=== PATIENT | male | born 1970 | race Caucasian/White ===

== ENCOUNTER 2017-03-05 16:28 | Inpatient (IN) | payer OTHER ==
[~2017-03-05] VITALS: Ht 180.3 cm; Wt 102.6 kg
[2017-03-05] VITALS (10 sets, daily range): BP systolic 94–149; BP diastolic 53–88; PULSE 81–111; RESP 20–27; TEMP 97.2–98.4; O2SAT 95–100
[2017-03-05] MEDS ORDERED: PROPOFOL 1000 MG/100 ML INJ 100 ML ONE (16:33)
[2017-03-05] MEDS ORDERED: DIPHTH/TETANUS/ACEL PERTUSSIS (BOOSTER) 0.5 ML VIAL/PFS IM ONE (16:47)
[2017-03-05] MEDS ORDERED: ceFAZolin 2 GM PREMIX 50 ML ONE (16:47)
[2017-03-05 16:59] LABS: AUTOMATED NEUTROPHIL # 16.6 TH/MM3 (1.8-7.7); BASOPHIL # 0.1 TH/MM3 (0-0.2); BASOPHIL % 0.5 % (0.0-2.0); EOSINOPHIL # 0.2 TH/MM3 (0-0.4); EOSINOPHIL % 0.8 % (0.0-4.0); HEMATOCRIT 39.5 % (39.0-51.0); HEMO FLAGS DIFF FINAL; LYMPH % 20.5 % (9.0-44.0); LYMPHOCYTE # 4.6 TH/MM3 (1.0-4.8); MEAN CELL VOLUME 91.1 FL (80.0-100.0); MEAN CORPUSCULAR HEMOGLOBIN 30.2 PG (27.0-34.0); MEAN CORPUSCULAR HGB CONC 33.2 % (32.0-36.0); MONO % 4.3 % (0.0-8.0); NEUT % 73.9 % (16.0-70.0); PLATELET COUNT 242 TH/MM3 (150-450); RED BLOOD COUNT 4.34 MIL/MM3 (4.50-5.90); RED CELL DISTRIBUTION WIDTH 13.2 % (11.6-17.2); WHITE BLOOD COUNT 22.4 TH/MM3 (4.0-11.0)
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
[2017-03-05] MEDS ORDERED: ONDANSETRON HCL 4 MG/2 ML VIAL IV PUSH PRN (17:00)
[2017-03-05] MEDS ORDERED: Post-op Orders (for Pharmacy) MISC XX ONE (17:00)
[2017-03-05] MEDS ORDERED: fentaNYL DRIP 250 ML IV PRN ×2 (17:00→19:30)
[2017-03-05] MEDS ORDERED: PROPOFOL 1000 MG/100 ML INJ 100 ML IV PRN ×2 (17:00→19:30)
[2017-03-05] MEDS ORDERED: NALOXONE HCL 0.4 MG/ML AMP IV PUSH PRN (17:00)
[2017-03-05] MEDS ORDERED: SODIUM CHLORIDE 0.9% FLUSH 10 ML FLUSH IV FLUSH PRN (17:00)
[2017-03-05 17:06] LABS: APTT (PATIENT) 22.9 SEC (24.3-30.1); PROTHROMBIN TIME - PATIENT 11.6 SEC (9.8-11.6)
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
[2017-03-05] MEDS ORDERED: IOHEXOL 350 MG/ML 10 ML VIAL (for RAD DIAG) IVCONTRAST ONE (17:33)
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
[2017-03-05] MEDS ORDERED: LIDOCAINE 1%/EPINEPHrine 1:100,000 SOLN 20 ML VIAL ONE (17:40)
[2017-03-05] MEDS ORDERED: GELFOAM SIZE 100 ONE (17:40)
[2017-03-05] MEDS ORDERED: THROMBIN (TOPICAL) 5,000 UNIT VIAL ONE (17:40)
[2017-03-05] MEDS ORDERED: GENTAMICIN SULFATE 80 MG/2 ML VIAL ONE (17:40)
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
[2017-03-05] MEDS ORDERED: 3% SALINE INJ 500 ML IV SCH (18:00)
[2017-03-05] MEDS ORDERED: MANNITOL INJ 200 ML ONE (18:06)
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
[2017-03-05 18:37] LABS: BLOOD GAS BASE EXCESS -13.7 mmol/L (-2-2); BLOOD GAS CARBOXYHEMOGLOBIN 0.6 % (0-4); BLOOD GAS HCO3 14 mmol/L (22-26); BLOOD GAS METHEMOGLOBIN 1.4 % (0-2); BLOOD GAS O2 HGB SATURATION 96 % (90-100); BLOOD GAS PCO2 42 mmHg (38-42); BLOOD GAS PO2 154 mmHg (61-120); BLOOD GAS TOTAL HGB 9.4 G/DL (12.0-16.0); TEMP CORR TO 98.6
[2017-03-05 18:38] LABS: CRITICAL VALUE YES; OXYGEN DEVICE OR
[2017-03-05] MEDS ORDERED: SODIUM BICARBONATE 8.4% INJ 50 MEQ/50 ML SYR ONE ×3 (18:40→18:52)
[2017-03-05] MEDS ORDERED: CALCIUM CHLORIDE 10% SOLN 1 GRAM/10 ML SYR ONE (18:51)
[2017-03-05] MEDS ORDERED: NOREPINEPHRINE 4 MG/4 ML AMP ONE ×3 (19:00→19:30)
[2017-03-05] MEDS ORDERED: PHENYLEPHRINE HCL 10 MG/ML VIAL ONE ×2 (19:09→19:15)
[2017-03-05] MEDS ORDERED: POTASSIUM PHOSPHATE MONOBASIC 500 MG TAB PO/TUBE PRN (19:30)
[2017-03-05] MEDS ORDERED: MIDAZOLAM HCL 2 MG/2 ML VIAL IV PUSH PRN (19:30)
[2017-03-05] MEDS ORDERED: POTASSIUM PHOSPHATE INJ 30 MMOL in SODIUM CHLOR 0.9% 250 ML INJ 250 ML IV PRN (19:30)
[2017-03-05] MEDS ORDERED: MAGNESIUM OXIDE 400 MG TAB PO PRN (19:30)
[2017-03-05] MEDS ORDERED: POTASSIUM CHLORIDE 25 MEQ EFFERVESCENT TAB PO PRN (19:30)
[2017-03-05] MEDS ORDERED: POTASSIUM PHOSPHATE MONOBASIC 500 MG TAB PO PRN (19:30)
[2017-03-05] MEDS ORDERED: SODIUM PHOSPHATE INJ 30 MMOL in SODIUM CHLOR 0.9% 250 ML INJ 240 ML IV PRN (19:30)
[2017-03-05] MEDS ORDERED: POTASSIUM CHLOR 40 MEQ PREMIX 100 ML IV PRN ×2 (19:30)
[2017-03-05] MEDS ORDERED: SODIUM CHLOR 0.9% 1000 ML INJ 1,000 ML IV ONE (19:30)
[2017-03-05] MEDS ORDERED: NOREPINEPHRINE INJ 4 MG in SODIUM CHLOR 0.9% 250 ML INJ 246 ML IV PRN (19:30)
[2017-03-05] MEDS ORDERED: TERBUTALINE INJ 1 MG/ML AMP SQ PRN ×2 (19:30→20:45)
[2017-03-05] MEDS ORDERED: MAGNESIUM SULFATE INJ 2 GM in SODIUM CHLORIDE 0.9% INJ 96 ML IV PRN (19:30)
[2017-03-05] MEDS ORDERED: POTASSIUM CHLOR 20 MEQ PREMIX 100 ML IV PRN ×2 (19:30)
[2017-03-05] MEDS ORDERED: MIDAZOLAM HCL 5 MG/5 ML VIAL IV PUSH ONE (19:30)
[2017-03-05] MEDS ORDERED: MAGNESIUM SULFATE INJ 4 GM in SODIUM CHLORIDE 0.9% INJ 92 ML IV PRN (19:30)
[2017-03-05] MEDS ORDERED: ACETAMINOPHEN 650 MG/20.3 ML UDC PO PRN (19:45)
[2017-03-05] MEDS ORDERED: DEXTROSE 50% IN WATER 50 ML VIAL(D50) IV PUSH PRN (19:45)
[2017-03-05] MEDS: NOREPINEPHRINE 4 MG/NS 250 ML IV PRN ×2 (19:45)
[2017-03-05] MEDS ORDERED: GLUCAGON 1 MG/ML VIAL OTHER PRN (19:45)
[2017-03-05] MEDS ORDERED: MIDAZOLAM HCL 5 MG/ML VIAL (1 ML) ONE ×2 (19:52→22:47)
--- NOTE | 2017-03-05 19:56 | PD.OP ---
Operative Report Date of Surgery: Mar 05, 2017 Preoperative Diagnosis: (1) Traumatic brain injury Severe traumatic brain injury. Acute left hemisphere subdural hematoma Postoperative Diagnosis: (1) Traumatic brain injury Severe traumatic brain injury. Acute left hemisphere subdural hematoma Procedure: 1. Left frontotemporoparietal decompressive craniotomy. 2. Evacuation acute left hemisphere subdural hematoma 3. Placement left frontal ICP monitor. Anesthesia: Gen. Surgeon: Aayush Hickey Doctor Of Radiology(s): [place]agher Operation and Findings: Findings: Moderate left hemispheric acute subdural hematoma. Moderately severe left hemisphere edema. Significant contusion left temporal cortex Procedure in detail: The patient was brought into the operating room and general endotracheal anesthesia induced without difficulty. The Huffman catheter, and sequential compression devices were in place. The lines were established per anesthesia. The patient was placed in semilateral position on the 3080 table with the head on the horseshoe headrest. All extremities were appropriately padded Appropriate timeout procedure was performed with all personnel present and in agreement The left side of the head was shaved with the clippers and sterilely prepped and draped 1% Xylocaine was used for local infiltration over the incision site which was made over the left frontotemporal parietal area in a curvilinear fashion and carried sharply down to the cranium through the temporalis muscle and fascia. The scalp and temporalis muscle flap were elevated in a single layer with the periosteal elevator and retracted r over a laparotomy sponge with the large scalp hooks. The civil rights representative was used to place a single bur hole in the posterior left frontoparietal region and the craniotome was used since to incise the bone flap. The dura was moderately tense upon removal of the bone flap. The dura was opened in a cruciate fashion and the edges retracted with 4-0 Nurolon suture. The large underlying subdural hematoma was evacuated with gentle suction and irrigation until clear The bipolar forceps were used to control any bleeding at the operative site. There was moderate bleeding from the left temporal cortex secondary to contusion. There was still evidence of surrounding edema and the brain was bulging slightly beyond the edge dura at the the craniotomy site. It was elected to leave the bone flap out and the dura opened to allow for cerebral edema. The ICP monitor lead was zeroed and brought to a subgaleal tract from the frontal region and placed directly into the frontal brain parenchyma. The ICP lead was secured to the scalp with 2-0 nylon suture. A 7 mm flat fluted drain was left in place in the subdural space A 7 mm flat fluted drain was left in place in the subgaleal space The drains were brought out through incisions in the posterior parietal region and secured to the skin with nylon suture The closure was performed with 2-0 Vicryl for the temporalis muscle fascia and galeal closure and tatum for the skin closure. A dressing of sterile Telfa, 4 x 4's, and a loose head stockinette was applied. The patient was taken to recovery room in stable condition All counts were correct at the end of the case. Estimated blood loss was 200 cc No specimen was sent to pathology Aayush Hickey MD Mar 05, 2017 19:56
[2017-03-05] MEDS ORDERED: SODIUM CHLORIDE 23.4% INJ 240 MEQ in SYRINGE/BAG 1 EA IV ONE (20:00)
[2017-03-05] MEDS: SODIUM CHLOR 0.9% 1000 ML INJ 1,000 ML IV SCH (20:14)
--- NOTE | 2017-03-05 20:15 | PD.PROCEDR ---
Procedure Note Procedure DATE: 03/05/17 CENTRAL LINE PLACEMENT: Right subclavian vein. INDICATION: Central venous access CONSENT Procedure was performed emergently as patient is hypotensive and with intercerebral hypertension requiring pressors to maintain MAP and CPP DESCRIPTION OF THE PROCEDURE The patient was placed in supine position. The skin was cleansed with Chloraprep. Additional barrier precautions included large sterile drape, sterile gloves, sterile gown, face mask, and hat. 1 % lidocaine was used for local anesthesia. The patient was placed in mild Trendelenburg. On a single attempt, the vein was accessed with an introducer needle. The guide wire was advanced and the tract was dilated. Using Seldinger technique a 7 Azeri 20 cm antimicrobial coated triple-lumen catheter was advanced to a depth of 16 centimeters. The guide wire was removed. All ports had good return of dark venous blood and flushed easily with saline. The central line was secured with Stat-lock. A sterile dressing with antibiotic disc was applied. ESTIMATED BLOOD LOSS: Minimal COMPLICATIONS: No apparent complications. STAT chest x-ray is pending Teresita Arce MD Mar 05, 2017 20:15
[2017-03-05] MEDS ORDERED: PHENYLEPHRINE INJ 160 MG in SODIUM CHLORID 0.9% 500 ML INJ 500 ML IV PRN (20:45)
[2017-03-05] MEDS: fentaNYL 2,500 MCG/NS 250 ML IV PRN (20:46)
[2017-03-05] MEDS: levETIRAcetam INJ 500 MG in SODIUM CHLORIDE 0.9% INJ 100 ML IV SCH (20:46)
[2017-03-05] MEDS: PROPOFOL 1000 MG/100 ML IV PRN (20:46)
[2017-03-05] MEDS: SODIUM CHLORIDE 0.9% FLUSH 10 ML FLUSH IV FLUSH SCH (20:46)
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
[2017-03-05] MEDS ORDERED: NS IV SCH (21:08)
[2017-03-05] MEDS ORDERED: VASOPRESSIN IV SCH (21:08)
[2017-03-05 21:10] LABS: BLOOD GAS BASE EXCESS -15.2 mmol/L (-2-2); BLOOD GAS CARBOXYHEMOGLOBIN 0.7 % (0-4); BLOOD GAS HCO3 12 mmol/L (22-26); BLOOD GAS O2 HGB SATURATION 98 % (90-100); BLOOD GAS OXYGEN CONTENT 10.2 Vol % (12.0-20.0); BLOOD GAS PCO2 37 mmHg (38-42); BLOOD GAS PO2 244 mmHg (61-120); TEMP CORR TO 98.6
[2017-03-05 21:11] LABS: CRITICAL VALUE YES; OXYGEN DEVICE VENTILATOR
[2017-03-05 21:12] LABS: DRAW SITE ART LINE; FIO2 100 %; STAT NO
[2017-03-05] MEDS ORDERED: SODIUM CHLOR 0.9% 250 ML INJ 250 ML IV ONE ×3 (21:30→23:00)
[2017-03-05] MEDS: VASOPRESSIN INJ 40 UNITS in SODIUM CHLORIDE 0.9% INJ 98 ML IV SCH (21:38)
[2017-03-05 21:45] LABS: AUTOMATED NEUTROPHIL # 10.3 TH/MM3 (1.8-7.7); BASOPHIL % 0.3 % (0.0-2.0); EOSINOPHIL % 0.2 % (0.0-4.0); HEMATOCRIT 21.3 % (39.0-51.0); LYMPH % 8.1 % (9.0-44.0); MEAN CELL VOLUME 92.4 FL (80.0-100.0); MEAN CORPUSCULAR HEMOGLOBIN 30.1 PG (27.0-34.0); MEAN CORPUSCULAR HGB CONC 32.6 % (32.0-36.0); MONO % 6.6 % (0.0-8.0); NEUT % 84.8 % (16.0-70.0); PLATELET COUNT 151 TH/MM3 (150-450); RED BLOOD COUNT 2.31 MIL/MM3 (4.50-5.90); RED CELL DISTRIBUTION WIDTH 13.2 % (11.6-17.2); WHITE BLOOD COUNT 12.1 TH/MM3 (4.0-11.0)
[2017-03-05 21:51] LABS: HEMO FLAGS AUTO DIFF
[2017-03-05 21:54] LABS: APTT (PATIENT) 23.3 SEC (24.3-30.1); INTERNATIONAL NORMALIZED RATIO 1.3 RATIO; PROTHROMBIN TIME - PATIENT 14.1 SEC (9.8-11.6)
[2017-03-05 21:58] LABS: BICARBONATE 14.3 MEQ/L (21.0-32.0); POTASSIUM 3.5 MEQ/L (3.5-5.1)
[2017-03-05 22:21] LABS: CALCIUM-PROTEIN CORRECTED 7.6 MG/DL (8.5-10.1); TOTAL BILIRUBIN ADULT 0.2 MG/DL (0.2-1.0)
[2017-03-05 22:23] LABS: BANDS 28 % (0-6); METAMYELOCYTES 9 % (0-1); NEUTROPHIL # MANUAL DIFF 10.8 TH/MM3 (1.8-7.7); PLATELET ESTIMATE SMEAR LOW (NORMAL); PLATELET MORPHOLOGY NORMAL (NORMAL); POLYS (SEG NEUTROPHILS) 52 % (16-70); SCAN/DIFF FINAL DIFF MANUAL; WBC DIFF SAMPLE 100
[2017-03-05] MEDS ORDERED: CALCIUM CHLORIDE INJ 2 GM in SODIUM CHLORIDE 0.9% INJ 100 ML IV ONE (22:45)
[2017-03-05] MEDS ORDERED: MIDAZOLAM 100 MG/100 ML INJ 100 ML IV PRN (22:45)
[2017-03-05] MEDS ORDERED: MIDAZOLAM HCL 5 MG/ML VIAL (1 ML) IV PUSH ONE ×2 (22:45→23:45)
[2017-03-05] MEDS ORDERED: PHYTONADIONE INJ 10 MG in SODIUM CHLORIDE 0.9% INJ 50 ML IV ONE (22:45)
[2017-03-05] MEDS ORDERED: TRANEXAMIC ACID INJ 1,000 MG in SODIUM CHLORIDE 0.9% INJ 100 ML IV ONE (23:00)
[2017-03-05 23:07] LABS: CKMB 27.5 NG/ML (0.5-3.6)
[2017-03-05] MEDS: PANTOPRAZOLE SODIUM 40 MG VIAL IV PUSH SCH (23:29)
[2017-03-05 23:32] LABS: BLOOD, URINE MOD (NEG); GLUCOSE,URINE NEG (NEG); KETONE, URINE NEG (NEG); NITRITE,URINE NEG (NEG); URINE COLOR LIGHT-YELLOW (YELLW/STRAW)
[2017-03-05 23:41] LABS: RBC, URINE 0-3 /hpf (0-3); SQUAMOUS EPITHELIAL CELL URINE 0-5 /hpf (0-5)
[2017-03-05 23:42] LABS: BACTERIA, URINE OCC /hpf; COMMENT (UR) CATH-CULTURE IND; CULTURE IF INDICATED CATH CULTURE IND
[2017-03-06] VITALS (23 sets, daily range): BP systolic 100–201; BP diastolic 74–115; PULSE 72–133; RESP 20–24; TEMP 93.9–98.6; O2SAT 97–100
[2017-03-06] MEDS: SODIUM CHLORIDE 23.4% INJ 240 MEQ in SYRINGE/BAG 1 EA IV PRN ×2 (00:42→04:53)
[2017-03-06] MEDS: SODIUM CHLOR 0.9% 1000 ML INJ 1,000 ML IV SCH ×2 (00:56→10:47)
[2017-03-06 02:22] LABS: APTT (PATIENT) 20.7 SEC (24.3-30.1); PROTHROMBIN TIME - PATIENT 10.9 SEC (9.8-11.6)
[2017-03-06] MEDS: PROPOFOL 1000 MG/100 ML IV PRN ×2 (02:51→05:57)
[2017-03-06 04:36] LABS: BASOPHIL % 0.1 % (0.0-2.0); HEMATOCRIT 27.9 % (39.0-51.0); LYMPH % 3.5 % (9.0-44.0); LYMPHOCYTE # 0.5 TH/MM3 (1.0-4.8); MEAN CELL VOLUME 88.5 FL (80.0-100.0); MEAN CORPUSCULAR HEMOGLOBIN 30.4 PG (27.0-34.0); MEAN CORPUSCULAR HGB CONC 34.4 % (32.0-36.0); MONO % 9.6 % (0.0-8.0); NEUT % 86.8 % (16.0-70.0); PLATELET COUNT 82 TH/MM3 (150-450); RED BLOOD COUNT 3.16 MIL/MM3 (4.50-5.90); RED CELL DISTRIBUTION WIDTH 14.2 % (11.6-17.2); WHITE BLOOD COUNT 14.9 TH/MM3 (4.0-11.0)
[2017-03-06 04:38] LABS: HEMO FLAGS AUTO DIFF
[2017-03-06] MEDS ORDERED: SODIUM CHLOR 0.9% 250 ML INJ 250 ML IV ONE (05:00)
[2017-03-06 05:09] LABS: ALKALINE PHOSPHATASE 61 U/L (45-117); ALT (GPT) 63 U/L (12-78); ANION GAP 11 MEQ/L (5-15); AST (GOT) 183 U/L (15-37); BICARBONATE 19.1 MEQ/L (21.0-32.0); BLOOD UREA NITROGEN 12 MG/DL (7-18); CHLORIDE 121 MEQ/L (98-107); GLOMERULAR FILTRATION RATE 60 ML/MIN (>89); MAGNESIUM 1.6 MG/DL (1.5-2.5); POTASSIUM 4.4 MEQ/L (3.5-5.1); SODIUM (NA) 151 MEQ/L (136-145); TOTAL BILIRUBIN ADULT 0.6 MG/DL (0.2-1.0)
[2017-03-06 05:14] LABS: BLOOD GAS BASE EXCESS -7.5 mmol/L (-2-2); BLOOD GAS CARBOXYHEMOGLOBIN 1.1 % (0-4); BLOOD GAS HCO3 18 mmol/L (22-26); BLOOD GAS METHEMOGLOBIN 1.3 % (0-2); BLOOD GAS O2 HGB SATURATION 97 % (90-100); BLOOD GAS OXYGEN CONTENT 12.9 Vol % (12.0-20.0); BLOOD GAS PCO2 42 mmHg (38-42); BLOOD GAS PO2 146 mmHg (61-120); BLOOD GAS TOTAL HGB 9.3 G/DL (12.0-16.0); CRITICAL VALUE YES; OXYGEN DEVICE VENTILATOR; TEMP CORR TO 98.6
[2017-03-06] MEDS: INSULIN ASPART SUPPLEMENTAL SCALE SQ SCH ×4 (05:14→18:00)
[2017-03-06 05:15] LABS: DRAW SITE ART LINE; FIO2 60 %; STAT NO
[2017-03-06] MEDS: fentaNYL 2,500 MCG/NS 250 ML IV PRN (05:15)
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
[2017-03-06] MEDS ORDERED: RESP: ALBUTEROL 2.5 MG/3 ML NEB (PRN) NEB (05:45)
[2017-03-06] MEDS: NOREPINEPHRINE 4 MG/NS 250 ML IV PRN ×4 (06:28→18:18)
[2017-03-06 06:36] LABS: BANDS 49 % (0-6); CORRECTED NUCLEATED RBC 1 /100 WBC (0-0); METAMYELOCYTES 18 % (0-1); NEUTROPHIL # MANUAL DIFF 13.6 TH/MM3 (1.8-7.7); POLYS (SEG NEUTROPHILS) 24 % (16-70); SCAN/DIFF FINAL DIFF MANUAL; WBC DIFF SAMPLE 100
[2017-03-06 06:37] LABS: PLATELET ESTIMATE SMEAR LOW (NORMAL); PLATELET MORPHOLOGY NORMAL (NORMAL); TOXIC VACUOLATION PRESENT (NONE SEEN)
[2017-03-06] MEDS: BACITRACIN TOP OINT 15 GM TUBE TOP SCH ×2 (09:15→20:48)
[2017-03-06] MEDS: RESP: ALBUTEROL 2.5 MG/IPRATROPIUM 0.5 MG NEB (SCH) NEB ×3 (09:24→20:36)
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
[2017-03-06] MEDS ORDERED: hydrALAZINE HCL 20 MG/ML VIAL IV PUSH PRN (10:15)
[2017-03-06] MEDS ORDERED: niCARdipine INJ 25 MG in SODIUM CHLOR 0.9% 250 ML INJ 240 ML IV PRN (10:15)
[2017-03-06] MEDS ORDERED: LABETALOL HCL 100 MG/20 ML VIAL IV PUSH PRN (10:15)
[2017-03-06] MEDS: CHLORHEXIDINE 0.12% (ORAL KIT) 15 ML CUP MT SCH ×2 (10:47→20:48)
[2017-03-06] MEDS: levETIRAcetam INJ 500 MG in SODIUM CHLORIDE 0.9% INJ 100 ML IV SCH ×2 (10:47→20:48)
[2017-03-06] MEDS: SODIUM CHLORIDE 0.9% FLUSH 10 ML FLUSH IV FLUSH SCH ×2 (10:48→20:48)
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
[2017-03-06] MEDS: SODIUM CHLOR 0.45% 1000 ML INJ 1,000 ML IV SCH (14:23)
[2017-03-06] MEDS: VASOPRESSIN INJ 40 UNITS in SODIUM CHLORIDE 0.9% INJ 98 ML IV SCH ×2 (14:43→14:44)
[2017-03-06] MEDS ORDERED: DESMOPRESSIN ACETATE 4 MCG/ML VIAL IV PUSH ONE (15:00)
--- NOTE | 2017-03-06 15:18 | EKG ---
Date Performed: 03/06/2017 Time Performed: 05:45:56 PTAGE: 89 years EKG: Sinus rhythm . Short TN interval Borderline ECG NO PREVIOUS TRACING DOCTOR: Redd Suárez Interpretating Date/Time 03/06/2017 15:17:18
[2017-03-06] MEDS: PANTOPRAZOLE SODIUM 40 MG VIAL IV PUSH SCH (16:31)
[2017-03-06 20:29] LABS: HEMATOCRIT 22.1 % (39.0-51.0); MEAN CELL VOLUME 88.2 FL (80.0-100.0); PLATELET COUNT 88 TH/MM3 (150-450); RED BLOOD COUNT 2.51 MIL/MM3 (4.50-5.90); RED CELL DISTRIBUTION WIDTH 14.9 % (11.6-17.2); WHITE BLOOD COUNT 13.8 TH/MM3 (4.0-11.0)
[2017-03-06 20:35] LABS: REVIEW FLAG FINAL
[2017-03-07] VITALS (17 sets, daily range): BP systolic 104–125; BP diastolic 57–76; PULSE 91–96; RESP 22; TEMP 98.1–99; O2SAT 92–100
[2017-03-07] MEDS: SODIUM CHLOR 0.45% 1000 ML INJ 1,000 ML IV SCH (00:07)
[2017-03-07 03:22] LABS: BASOPHIL % 0.1 % (0.0-2.0); EOSINOPHIL % 0.1 % (0.0-4.0); LYMPH % 8.4 % (9.0-44.0); MEAN CELL VOLUME 88.3 FL (80.0-100.0); MEAN CORPUSCULAR HEMOGLOBIN 30.6 PG (27.0-34.0); MEAN CORPUSCULAR HGB CONC 34.7 % (32.0-36.0); MONO % 6.8 % (0.0-8.0); NEUT % 84.6 % (16.0-70.0); PLATELET COUNT 82 TH/MM3 (150-450); RED BLOOD COUNT 2.28 MIL/MM3 (4.50-5.90); RED CELL DISTRIBUTION WIDTH 14.9 % (11.6-17.2); WHITE BLOOD COUNT 11.9 TH/MM3 (4.0-11.0)
[2017-03-07 03:29] LABS: HEMATOCRIT 20.1 % (39.0-51.0); HEMO FLAGS DIFF FINAL
[2017-03-07 03:46] LABS: ALKALINE PHOSPHATASE 54 U/L (45-117); ALT (GPT) 47 U/L (12-78); ANION GAP 11 MEQ/L (5-15); AST (GOT) 101 U/L (15-37); BICARBONATE 24.5 MEQ/L (21.0-32.0); BLOOD UREA NITROGEN 13 MG/DL (7-18); CHLORIDE 125 MEQ/L (98-107); GLOMERULAR FILTRATION RATE 113 ML/MIN (>89); POTASSIUM 3.6 MEQ/L (3.5-5.1); TOTAL BILIRUBIN ADULT 0.2 MG/DL (0.2-1.0)
[2017-03-07 03:49] LABS: SODIUM (NA) 160 MEQ/L (136-145)
[2017-03-07] MEDS ORDERED: SODIUM CHLOR 0.9% 250 ML INJ 250 ML IV ONE (04:00)
[2017-03-07] MEDS: RESP: ALBUTEROL 2.5 MG/IPRATROPIUM 0.5 MG NEB (SCH) NEB ×4 (04:09→19:52)
--- NOTE | 2017-03-07 04:36 | RADRPT ---
EXAM DATE/TIME: 03/07/2017 04:15 [facility] COMPARISON: CHEST SINGLE AP, March 05, 2017, 20:11. INDICATIONS : Shortness of breath. MEDICAL HISTORY : None. SURGICAL HISTORY : None. ENCOUNTER: Subsequent ACUITY: 2 days PAIN SCORE: 0/10 LOCATION: Bilateral chest FINDINGS: Right chest tube remains in place. I don't see a pneumothorax currently. Right chest wall emphysema i s slightly decreased in the interim. Multiple right rib fractures are again noted. Decreasing left base consolidation. Endotracheal tube tip is about 4 cm above the nayeli. There is nasogastric tube with tip in the stoma ch. CONCLUSION: 1. Right chest tube present. No perceptible pneumothorax. 2. Decreasing left base consolidation. Ollie Vazquez MD on March 07, 2017 at 4:34 Board Certified Radiologist. This report was verified electronically.
[2017-03-07 05:24] LABS: BLOOD GAS BASE EXCESS 1.2 mmol/L (-2-2); BLOOD GAS CARBOXYHEMOGLOBIN 1.3 % (0-4); BLOOD GAS HCO3 25 mmol/L (22-26); BLOOD GAS O2 HGB SATURATION 96 % (90-100); BLOOD GAS OXYGEN CONTENT 9.7 Vol % (12.0-20.0); BLOOD GAS PCO2 40 mmHg (38-42); BLOOD GAS PO2 100 mmHg (61-120); CRITICAL VALUE NO; OXYGEN DEVICE VENTILATOR; TEMP CORR TO 98.6
[2017-03-07 05:25] LABS: DRAW SITE ART LINE; FIO2 40 %; STAT NO; VENT SETTINGS PRVC / AC /
[2017-03-07] MEDS: INSULIN ASPART SUPPLEMENTAL SCALE SQ SCH ×2 (06:00)
[2017-03-07] MEDS: CHLORHEXIDINE 0.12% (ORAL KIT) 15 ML CUP MT SCH (08:00)
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
[2017-03-07] MEDS: SODIUM CHLORIDE 0.9% FLUSH 10 ML FLUSH IV FLUSH SCH (09:00)
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
[2017-03-07] MEDS: VASOPRESSIN INJ 40 UNITS in SODIUM CHLORIDE 0.9% INJ 98 ML IV SCH (10:07)
[2017-03-07 12:23] LABS: BLOOD GAS CARBOXYHEMOGLOBIN 1.4 % (0-4); BLOOD GAS HCO3 26 mmol/L (22-26); BLOOD GAS METHEMOGLOBIN 1.1 % (0-2); BLOOD GAS O2 HGB SATURATION 94 % (90-100); BLOOD GAS OXYGEN CONTENT 9.9 Vol % (12.0-20.0); BLOOD GAS PCO2 39 mmHg (38-42); BLOOD GAS PO2 78 mmHg (61-120); BLOOD GAS TOTAL HGB 7.3 G/DL (12.0-16.0); CRITICAL VALUE NO; DRAW SITE ART LINE; FIO2 40 %; NUMBER OF ARTERIAL PUNCTURES 0; OXYGEN DEVICE VENTILATOR; TEMP CORR TO 98.6; VENT SETTINGS PRVC/22/550/1.0/+8
[2017-03-07 12:24] LABS: STAT NO; ULNAR PULSE PRESENT
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
[2017-03-07 22:23] LABS: BLOOD GAS BASE EXCESS -0.9 mmol/L (-2-2); BLOOD GAS CARBOXYHEMOGLOBIN 1.2 % (0-4); BLOOD GAS HCO3 24 mmol/L (22-26); BLOOD GAS METHEMOGLOBIN 0.9 % (0-2); BLOOD GAS O2 HGB SATURATION 98 % (90-100); BLOOD GAS OXYGEN CONTENT 17.5 Vol % (12.0-20.0); BLOOD GAS PCO2 41 mmHg (38-42); BLOOD GAS PO2 313 mmHg (61-120); BLOOD GAS TOTAL HGB 12.2 G/DL (12.0-16.0); CRITICAL VALUE NO; DRAW SITE ALINE; FIO2 100 %; OXYGEN DEVICE VENTILATOR; STAT NO; TEMP CORR TO 98.6
[2017-03-08 00:24] VITALS: O2SAT 94
[2017-03-08 01:56] VITALS: O2SAT 100
[2017-03-08 02:14] LABS: BLOOD GAS BASE EXCESS -0.8 mmol/L (-2-2); BLOOD GAS CARBOXYHEMOGLOBIN 1.2 % (0-4); BLOOD GAS HCO3 26 mmol/L (22-26); BLOOD GAS O2 HGB SATURATION 98 % (90-100); BLOOD GAS PCO2 72 mmHg (38-42); BLOOD GAS PO2 410 mmHg (61-120); BLOOD GAS TOTAL HGB 10.2 G/DL (12.0-16.0); TEMP CORR TO 98.6
[2017-03-08 02:15] LABS: CRITICAL VALUE YES; OXYGEN DEVICE NASAL CANNULA
[2017-03-08 02:16] LABS: DRAW SITE ALINE; FIO2 15 %; STAT NO
[2017-03-08 03:05] LABS: BLOOD GAS CARBOXYHEMOGLOBIN 1.5 % (0-4); BLOOD GAS HCO3 24 mmol/L (22-26); BLOOD GAS O2 HGB SATURATION 97 % (90-100); BLOOD GAS OXYGEN CONTENT 15.3 Vol % (12.0-20.0); BLOOD GAS PCO2 38 mmHg (38-42); BLOOD GAS PO2 233 mmHg (61-120); BLOOD GAS TOTAL HGB 10.8 G/DL (12.0-16.0); CRITICAL VALUE NO; OXYGEN DEVICE VENTILATOR; TEMP CORR TO 98.6
[2017-03-08 03:06] LABS: DRAW SITE ALINE; STAT NO
[2017-03-08 03:22] VITALS: O2SAT 92
[2017-03-08] MEDS ORDERED: INSULIN HUMAN REGULAR 1,000 UNITS/10 ML VIAL IV PUSH ONE (11:45)
[2017-03-08 12:58] LABS: AUTOMATED NEUTROPHIL # 13.2 TH/MM3 (1.8-7.7); BASOPHIL % 0.2 % (0.0-2.0); HEMATOCRIT 28.4 % (39.0-51.0); LYMPH % 3.2 % (9.0-44.0); LYMPHOCYTE # 0.5 TH/MM3 (1.0-4.8); MEAN CELL VOLUME 85.3 FL (80.0-100.0); MEAN CORPUSCULAR HEMOGLOBIN 30.2 PG (27.0-34.0); MEAN CORPUSCULAR HGB CONC 35.4 % (32.0-36.0); MONO % 4.6 % (0.0-8.0); PLATELET COUNT 72 TH/MM3 (150-450); RED BLOOD COUNT 3.33 MIL/MM3 (4.50-5.90); RED CELL DISTRIBUTION WIDTH 14.7 % (11.6-17.2); WHITE BLOOD COUNT 14.3 TH/MM3 (4.0-11.0)
[2017-03-08 13:03] LABS: BACTERIA, URINE RARE /hpf; BLOOD, URINE NEG (NEG); GLUCOSE,URINE NEG (NEG); HYALINE CAST, URINE 13 /lpf (RARE); KETONE, URINE NEG (NEG); MUCUS URINE FEW /lpf (OCC); NITRITE,URINE NEG (NEG); URINE COLOR YELLOW (YELLW/STRAW)
[2017-03-08 13:05] LABS: HEMO FLAGS AUTO DIFF
[2017-03-08 13:23] LABS: ALKALINE PHOSPHATASE 92 U/L (45-117); ALT (GPT) 48 U/L (12-78); ANION GAP 10 MEQ/L (5-15); AST (GOT) 97 U/L (15-37); BICARBONATE 27.3 MEQ/L (21.0-32.0); BLOOD UREA NITROGEN 18 MG/DL (7-18); CHLORIDE 115 MEQ/L (98-107); GLOMERULAR FILTRATION RATE 77 ML/MIN (>89); POTASSIUM 3.2 MEQ/L (3.5-5.1); SODIUM (NA) 152 MEQ/L (136-145)
[2017-03-08 14:32] LABS: BANDS 45 % (0-6); METAMYELOCYTES 1 % (0-1); NEUTROPHIL # MANUAL DIFF 13.9 TH/MM3 (1.8-7.7); POLYS (SEG NEUTROPHILS) 51 % (16-70); WBC DIFF SAMPLE 100
[2017-03-08 14:33] LABS: PLATELET ESTIMATE SMEAR LOW (NORMAL); PLATELET MORPHOLOGY NORMAL (NORMAL); SCAN/DIFF FINAL DIFF MANUAL
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
== END 2017-03-07 12:55 | disposition expired | DRG 955 ==
LOC: NEPI 16:28 → NEDA 17:10 → EDBD 17:10 → N03A 19:18 → N03B 03-06 16:58 → N03A 03-06 17:09
PROVIDERS: ADMIT Surgery; ATTEND Surgery
PROC: 00H002Z Insertion of Monitoring Device into Brain, Open Approach (ICD-10-PCS; 2017-03-05)
PROC: 4A107BD Monitoring of Intracranial Pressure, Via Natural or Artificial Opening (ICD-10-PCS; 2017-03-05)
PROC: 5A1945Z Respiratory Ventilation, 24-96 Consecutive Hours (ICD-10-PCS; 2017-03-05)
PROC: 0W9930Z Drainage of Right Pleural Cavity with Drainage Device, Percutaneous Approach (ICD-10-PCS; 2017-03-05)
PROC: 02HV33Z Insertion of Infusion Device into Superior Vena Cava, Percutaneous Approach (ICD-10-PCS; 2017-03-05)
PROC: 30233K1 Transfusion of Nonautologous Frozen Plasma into Peripheral Vein, Percutaneous Approach (ICD-10-PCS; 2017-03-05)
PROC: 30233N1 Transfusion of Nonautologous Red Blood Cells into Peripheral Vein, Percutaneous Approach (ICD-10-PCS; 2017-03-05)
PROC: 30233M1 Transfusion of Nonautologous Plasma Cryoprecipitate into Peripheral Vein, Percutaneous Approach (ICD-10-PCS; 2017-03-05)
PROC: 00C00ZZ Extirpation of Matter from Brain, Open Approach (ICD-10-PCS; principal; 2017-03-05 17:46)
PROC: 30233R1 Transfusion of Nonautologous Platelets into Peripheral Vein, Percutaneous Approach (ICD-10-PCS; 2017-03-06)
DX: S27.2XXA Traumatic hemopneumothorax, initial encounter; G93.6 Cerebral edema; G93.5 Compression of brain; J96.01 Acute respiratory failure with hypoxia; Z51.5 Encounter for palliative care; J96.02 Acute respiratory failure with hypercapnia; S36.113A Laceration of liver, unspecified degree, initial encounter; S22.41XA Multiple fractures of ribs, right side, initial encounter for closed fracture; S32.019A Unspecified fracture of first lumbar vertebra, initial encounter for closed fracture; T79.7XXA Traumatic subcutaneous emphysema, initial encounter; S32.029A Unspecified fracture of second lumbar vertebra, initial encounter for closed fracture; M62.82 Rhabdomyolysis; D62 Acute posthemorrhagic anemia; D68.8 Other specified coagulation defects; E87.2 Acidosis; E87.0 Hyperosmolality and hypernatremia; S02.40EB Zygomatic fracture, right side, initial encounter for open fracture; R40.2432 Glasgow coma scale score 3-8, at arrival to emergency department; R57.8 Other shock; D69.6 Thrombocytopenia, unspecified; D72.829 Elevated white blood cell count, unspecified; I48.91 Unspecified atrial fibrillation; V28.4XXA Motorcycle driver injured in noncollision transport accident in traffic accident, initial encounter; Y92.410 Unspecified street and highway as the place of occurrence of the external cause
CPT/HCPCS: 36430; 36556; 70450; 70486; 70496; 70498; 71010; 71260; 72125; 72128; 72131; 72170; 73100; 74177; 78606; 80053; 81001; 81003; 82435; 82550; 82552; 82565; 82805; 82947; 82948; 83735; 83930; 84100; 84132; 84295; 84520; 85007; 85025; 85027; 85384; 85610; 85730; 86850; 86900; 86901; 86920; 86927; 86965; 87040; 87070; 87086; 87205; 87641; 90715; 93005; 94002; 94003; 94640; 94664; 94667; 94668; 94770; A9539; C9113; J0690; J1580; J1953; J2150; J2250; J2370; J2597; J3010; J3430; J3475; J7030; J7040; J7050; P9016; P9017; P9035; Q9967